=== PATIENT | male | born 1935 | race Caucasian/White ===

== ENCOUNTER 2020-09-24 11:26 | Outpatient (RCR) | payer MEDICARE, SELFPAY ==
[2020-09-24 12:21] LABS: Anion Gap 9 (5-15); BUN 31 mg/dL (7-18); BUN/Creat Ratio 21.7 RATIO (10-20); Calcium,Total 8.8 mg/dL (8.5-10.1); Chloride 103 mmol/L (98-107); Creatinine, Serum 1.43 mg/dL (0.70-1.30); EST Glomerular Filtration Rate 50 mL/min (>60); Est Glom Filt Rate - Afr Amer 61 mL/min (>60); Glucose 94 mg/dL (74-106); Potassium 4.2 mmol/L (3.5-5.1); Sodium Level 139 mmol/L (136-145)
[2020-09-24 12:39] LABS: BNP,B-Type NATRIURETIC PEPTIDE 320.5 pg/mL (0-100)
== END 2020-09-24 18:00 | disposition home or self-care (01) ==
LOC: HHLAB 11:26
DX: I13.0 Hypertensive heart and chronic kidney disease with heart failure and stage 1 through stage 4 chronic kidney disease, or unspecified chronic kidney disease (principal); I50.43 Acute on chronic combined systolic (congestive) and diastolic (congestive) heart failure; N18.9 Chronic kidney disease, unspecified
CPT/HCPCS: 80048; 83880

== ENCOUNTER 2021-06-14 15:59 | Inpatient (IN) | payer MEDICARE, SELFPAY ==
[2021-06-14 16:05] VITALS: BP 95/56; PULSE 109; RESP 22; TEMP 36.9; O2SAT 90
[2021-06-14 16:52] VITALS: BMI 26.7
[2021-06-14 17:05] LABS: Absolute Neutrophil Count 6.1 X10^3/uL (2.0-7.7); Basophil# 0.03 X10^3/uL; Basophil% 0.4 % (0-1); Eosinophil# 0.41 X10^3/uL; Eosinophils% 4.8 % (0-5); Hematocrit 42.3 % (40-54); Hemoglobin 13.7 g/dL (13.0-16.5); Lymphocyte % 9.4 % (19-41); Mean Corp Hgb Conc 32.4 g/dL (32-36); Mean Corpuscular Hgb 25.5 pg (27.0-32.0); Mean Corpuscular Volume 78.8 fL (80-94); Mean Platelet Vol. 10.3 fl (6.2-12.0); Monocyte# 1.01 X10^3/uL; Monocyte% 11.9 % (0-10); NRBC Flagged by Analyzer 0 % (0-5); Neutrophil # 6.14 X10^3/uL (2.7-7.7); Neutrophil % 72.6 % (47-70); POSITIVE MORPHOLOGY YES; Platelet Count 248 K/mm3 (150-450); RBC Distribution Width CV 21.3 % (11.6-14.6); RBC Distribution Width SD 56.3 fl (35.1-43.9); Red Blood Count 5.37 M/mm3 (4.6-6.2); White Blood Count 8.5 K/mm3 (4.4-11.0)
[2021-06-14 17:11] LABS: Differential Indicated SCAN CRITERIA MET
[2021-06-14 17:14] LABS: International Normalized Ratio 2.3; Prothrombin Time (Protime)PT. 24.2 SECONDS (11.7-14.9)
[2021-06-14 17:16] LABS: Anion Gap 6 (5-15); BUN 30 mg/dL (7-18); BUN/Creat Ratio 18.9 RATIO (10-20); Calcium,Total 8.5 mg/dL (8.5-10.1); Chloride 100 mmol/L (98-107); Creatinine, Serum 1.59 mg/dL (0.70-1.30); EST Glomerular Filtration Rate 44 mL/min (>60); Est Glom Filt Rate - Afr Amer 53 mL/min (>60); Estimated Creatinine Clearance 33.97 ml/min; Glucose 116 mg/dL (74-106); Potassium 4.3 mmol/L (3.5-5.1); Sodium Level 133 mmol/L (136-145)
[2021-06-14 17:22] VITALS: BP 95/56; PULSE 109
[2021-06-14] MEDS: Ranolazine 500 MG Tablet PO (17:22)
[2021-06-14] MEDS: Pantoprazole Sodium 40 MG Tablet PO (17:22)
[2021-06-14 17:37] LABS: Anisocytosis 1+; Differential Comment SCANNED
--- NOTE | 2021-06-14 17:42 | RAD_ITS ---
STUDY: X-RAY CHEST REASON FOR EXAM: Male, 86 years old. CHEST PAIN F/U PNEUMONIA AND CHF TECHNIQUE: XR Chest 2 Views COMPARISON: Prior comparison studies are not available for review at this time. FINDINGS: There are bilateral pleural effusions. There are bilateral infiltrates. Normal size heart. Normal mediastinum and delia. Normal visualized pulmonary arteries. There is atherosclerotic calcification of the aortic arch with tortuosity. There are diffuse degenerative changes of the visualized thoracic spine. There is degenerative osteoarthritis of the bilateral shoulders. There is no demonstrated abnormality of the visualized soft tissue structures of the upper abdomen. RAD/Chest PA and Lateral IMPRESSION: There are bilateral pleural effusions. There are bilateral infiltrates. Electronically Signed: Raheem Cortés MD at 18:16 EST , Service support ,
--- NOTE | 2021-06-14 19:06 | HP.PCM_ITS ---
HPI - General General Date of Admission: 06/14/21 HPI Narrative ESPERANZA MORENO, is a 86 Male who presents with followin05/18/2021 covid19 pneumonia, ongoing weakness. 06/06/2021 Fall, hit head, CT head negative, Chest X-ray ? pneumonia. Admit to [facility] for IV antibiotics for pneumonia/urinary tract infection. Atrial fibrillation with rapid ventricular response uncontrolled with IV Metoprolol. Cardizem helpful. Troponin elevated, BNP 10,989. Transfer to [facility]. 06/09/2021 CTA abdomen/pelvis showed bilateral pleural effusion with basilar infiltrates or atelectasis. Nonspecific proctitis and/or fecal impaction. 06/10/2021 Admit to [facility]. BUN 59, Creatinine 2.10, Potassium 5.8. ALT 1919, AST 2372. EKG showed atrial fibrillation with heart rate 97, nonspecific intraventricular block. 06/10/2021 Gastroenterology consulted for elevated liver enzymes, hepatitis panel ordered. 06/10/2021 Hold Ranexa for low blood pressure. Continue oral Lasix for congestive heart failure. Not surgical candidate for severe coronary artery disease. Medical records limited. 06/14/2021 Admit to TCU with debility, here for rehabilitation, strengthening, prior to discharge home with . [facility] Medical History (Updated 06/14/21 @ 19:[address] Tony Alvarez MD) Acute kidney injury Aortic stenosis Atrial fibrillation with rapid ventricular response Chronic combined systolic and diastolic congestive heart failure Coronary artery disease Debility Depression Elevated liver function tests Gastric cancer Hyperkalemia Hyperlipidemia Hypertension Pneumonia due to COVID-19 virus Home Medications aspirin 81 mg PO DAILY 06/14/21 [History Last Taken Unknown] atorvastatin 10 mg PO QHS 06/14/21 [History Last Taken Unknown] cholecalciferol (vitamin D3) [Vitamin D3] 50 mcg PO DAILY 06/14/21 [History Last Taken Unknown] clotrimazole-betamethasone [Lotrisone] 1 applic TOPICAL BID 06/14/21 [History Last Taken Unknown] cyanocobalamin (vitamin B-12) [Vitamin B-12] 100 mcg PO DAILY 06/14/21 [History Last Taken Unknown] digoxin 125 mcg PO DAILY 06/14/21 [History Last Taken Unknown] duloxetine 20 mg PO DAILY 06/14/21 [History Last Taken Unknown] finasteride 5 mg PO DAILY 06/14/21 [History Last Taken Unknown] furosemide 40 mg PO DAILY 06/14/21 [History Last Taken Unknown] hydroxychloroquine 200 mg PO BID 06/14/21 [History Last Taken Unknown] magnesium oxide 400 mg PO DAILY 06/14/21 [History Last Taken Unknown] metoprolol tartrate 25 mg PO BID 06/14/21 [History Last Taken Unknown] omega-3 fatty acids [Fish Oil] 300 mg PO DAILY 06/14/21 [History Last Taken Unknown] pantoprazole 40 mg PO BID 06/14/21 [History Last Taken Unknown] ranolazine [Ranexa] 500 mg PO BID 06/14/21 [History Last Taken Unknown] spironolactone 12.5 mg PO DAILY 06/14/21 [History Last Taken Unknown] tamsulosin 0.4 mg PO DAILY 06/14/21 [History Last Taken Unknown] trazodone 50 mg PO QHS 06/14/21 [History Last Taken Unknown] vitamin B complex [B Complex 50] 1 tab PO DAILY 06/14/21 [History Last Taken Unknown] warfarin 5 mg PO TUTH 06/14/21 [History Last Taken Unknown] warfarin 6 mg PO SUMOWEFRSA 06/14/21 [History Last Taken Unknown] Allergy/AdvReac Type Severity Reaction Status Date / Time buprenorphine AdvReac PT UNSURE Verified 06/14/21 16:10 OF REACTION butorphanol AdvReac PT UNSURE Verified 06/14/21 16:10 OF REACTION dezocine AdvReac PT UNSURE Verified 06/14/21 16:10 OF REACTION nalbuphine AdvReac PT UNSURE Verified 06/14/21 16:10 OF REACTION pentazocine AdvReac PT UNSURE Verified 06/14/21 16:10 OF REACTION tramadol AdvReac Vomiting Verified 06/14/21 16:10 Surgical History (Updated 06/14/21 @ 19:[address] Tony Alvarez MD) History of resection of stomach Social History (Updated 06/14/21 @ 19:[address] Tony Alvarez MD) household members: spouse Smoking Status: Never smoker alcohol intake: never substance use type: does not use ROS Constitutional Constitutional: Denies chills, fever(s) or weight gain ENT HEENT: Denies headache(s), nasal congestion or nasal discharge Cardiovascular Cardiovascular: Denies chest pain or palpitations Respiratory/Chest Respiratory/Chest: Denies cough, excessive phlegm production or shortness of breath with exertion Gastrointestinal Gastrointestinal: Denies abdominal pain, nausea or vomiting Genitourinary Genitourinary: Denies dysuria Musculoskeletal Musculoskeletal: Denies joint pain or joint swelling Integumentary Integumentary: Denies rash or wounds Neurologic Neurologic: Denies focal weakness, numbness or tingling Psychiatric Psychiatric: Denies anxiety, auditory hallucinations, depression, homicidal ideation or suicidal ideation Vital Signs Vital Signs Vital Signs: 06/14/21 16:05 06/14/21 17:22 Temperature 98.4 F Temperature Source Temporal Pulse Rate 109 H 109 H Respiratory Rate 22 H Blood Pressure 95/56 L 95/56 L Blood Pressure Mean 69 Blood Pressure Source Monitor Blood Pressure Position Semi-Fowlers Blood Pressure Location Right Arm Pulse Ox 90 Oxygen Delivery Method Room Air Weight Weight: 82.1 kg Body Mass Index (BMI) 26.7 Physical Exam Const alert and oriented x3 General Appearance: cooperative HEENT normocephalic Eyes PERRL and EOMs intact bilaterally Neck supple, no JVD and no carotid bruits Resp normal respiratory effort and normal air movement Auscultation: crackles bilateral and diminished lung sounds Cardio regular rate and regular rhythm GI normal to inspection, nondistended, normoactive bowel sounds, non-tender and non -distended Extremity normal capillary refill General Extremity: Negative for edema Skin no rashes or lesions noted General Skin Exam: no breakdown Psych affect normal Appearance: appropriate Results Lab / Micro Data Result Diagrams: 06/14/21 16:54 06/14/21 16:54 Labs: Laboratory Results - last 24 hr 06/14/21 16:54: PT 24.2 H, INR 2.3 06/14/21 16:54: WBC 8.5, RBC 5.37, Hgb 13.7, Hct 42.3, MCV 78.8 L, MCH 25.5 L, MCHC 32.4, RDW Std Deviation 56.3 H, RDW Coeff of Ruth 21.3 H, Plt Count 248, MPV 10.3, Immature Gran % (Auto) 0.900, Neut % (Auto) 72.6 H, Lymph % (Auto) 9.4 L, Bullitt % (Auto) 11.9 H, Eos % (Auto) 4.8, Baso % (Auto) 0.4, Absolute Neuts (auto) 6.1, Absolute Lymphs (auto) 0.80 L, Nucleated RBC % 0, Differential Comment SCANNED, Anisocytosis 1+ 06/14/21 16:54: Sodium 133 L, Potassium 4.3, Chloride 100, Carbon Dioxide 27.0, Anion Gap 6, BUN 30 H, Creatinine 1.59 H, Estim Creat Clear Calc 33.97, Est GFR (MDRD) Af Amer 53 L, Est GFR (MDRD) Non-Af 44 L, BUN/Creatinine Ratio 18.9, Glucose 116 H, Calcium 8.5 Assessment & Plan Assessment/Plan (1) Debility: (2) Atrial fibrillation with rapid ventricular response: (3) Pneumonia due to COVID-19 virus: (4) Acute kidney injury: (5) Hyperkalemia: (6) Elevated liver function tests: (7) Coronary artery disease: (8) Chronic combined systolic and diastolic congestive heart failure: (9) Aortic stenosis: (10) Hypertension: (11) Hyperlipidemia: (12) Depression: (13) Gastric cancer: PLAN: 86 year old male with below past medical history hospitalized for acute respiratory failure with hypoxia secondary to acute on chronic systolic and diastolic congestive heart failure, complicated by atrial fibrillation with rapid ventricular response, acute kidney injury, hyperkalemia, hepatic conge stion, admitted to TCU with debility, here for rehabilitation, strengthening, prior to discharge home with . * Debility - PT/OT. * Cognition - ST. * Pain - Tylenol 1000mg q6h prn pain (1-10). * Bowel - Senna/colace 1 tablet bid, Dulcolax 10mg daily prn. * Adult immunization - Administer prevnar 13, pneumovax 23, fluzone, covid19 vaccine as appropriate. * DVT prophylaxis - Not necessary, already on warfarin. * Hyperlipidemia - Atorvastatin 10mg qhs. * Atrial fibrillation - Metoprolol 25mg bid, Digoxin 125mcg daily, warfarin 3mg daily, follow inr. * Depression - Duloxetine 20mg daily, stable chronic [facility] use, GDR not recommended. * BPH - Finasteride 5mg daily, Tamsulosin 0.4mg daily. * Hypomagnesemia - Magnesium chloride 128mg daily. * Coronary artery disease - Metoprolol 25mg bid, Ranexa 500mg bid, warfarin. * Insomnia - Melatonin 10mg qhs. * Chronic systolic and diastolic congestive heart failure - Metoprolol 25mg bid, Entresto 24/26mg bid, Lasix 40mg bid.
[2021-06-14 20:48] VITALS: PULSE 103; RESP 22; O2SAT 88
[2021-06-14] MEDS: Atorvastatin Calcium 10 MG Tablet PO (22:14)
[2021-06-14] MEDS: MELATONIN 10 MG TABLET PO (22:14)
[2021-06-15] VITALS (7 sets, daily range): BP systolic 68–100; BP diastolic 40–62; PULSE 59–105; RESP 16–22; TEMP 36.9; O2SAT 92
[2021-06-15 05:18] LABS: BNP,B-Type NATRIURETIC PEPTIDE 1540.1 pg/mL (0-100)
[2021-06-15 05:21] LABS: ALB/GLOB Ratio 0.4 RATIO (0.9-2.4); AST(SGOT) 46 U/L (15-37); Alanine Aminotransfer ALT/SGPT 345 U/L (16-61); Albumin, Serum 1.8 g/dL (3.2-5.0); Alkaline Phosphatase 128 U/L (45-117); Anion Gap 8 (5-15); BUN 33 mg/dL (7-18); BUN/Creat Ratio 21.4 RATIO (10-20); Chloride 100 mmol/L (98-107); Creatinine, Serum 1.54 mg/dL (0.70-1.30); EST Glomerular Filtration Rate 46 mL/min (>60); Est Glom Filt Rate - Afr Amer 55 mL/min (>60); Estimated Creatinine Clearance 35.07 ml/min; Globulin 4.2 g/dL (2.2-4.2); Glucose 144 mg/dL (74-106); Potassium 4.2 mmol/L (3.5-5.1); Sodium Level 133 mmol/L (136-145)
[2021-06-15] MEDS: Nystatin Powder 15gm Bottle 1 APPLIC TOPICAL ×2 (05:46→17:15)
[2021-06-15] MEDS: DULoxetine Hcl 20 MG Capsule PO (05:46)
[2021-06-15] MEDS: Pantoprazole Sodium 40 MG Tablet PO (05:48)
[2021-06-15] MEDS: Ranolazine 500 MG Tablet PO ×2 (05:48→17:14)
[2021-06-15] MEDS: Metoprolol Tartrate 25 MG Tablet PO (05:48)
[2021-06-15] MEDS: Furosemide 40 MG Tablet PO (05:49)
[2021-06-15] MEDS: Digoxin 125 MCG Tablet PO (05:50)
[2021-06-15] MEDS: Magnesium Chloride 64 MG Delay Rel.Tablet 128 MG PO (05:51)
[2021-06-15] MEDS: SACUBITRIL/VALSARTAN 24/26 MG TABLET 1 EACH PO (05:51)
[2021-06-15] MEDS: Finasteride 5 MG Tablet PO (05:54)
[2021-06-15] MEDS: Menthol/Lanolin/Calamine/Znox 113 GM Tube 1 APPLIC TOPICAL ×2 (05:55→17:15)
[2021-06-15] MEDS: Tamsulosin HCl 0.4 MG Capsule PO (05:58)
--- NOTE | 2021-06-15 10:39 | CASEMGMT ---
Social Work SW met w/pt, BIMS completed, pt scored a 9. SW asked pt about his code status, he is not certain if he spoke w/pt about his code status or not. MOLST deferred at this time given pt's cognition. Pt confirms lived home w/ and plans to return home at discharge. Pt states does have some services at home but cannot remember what they are, gave permission to SW to call to confirm. Pt asked three times during our conversation if he can go home. SW spoke w/, confirmed w/her pt lives w/her, also lives with son, [id number], 10 yr old granddaughter and a second grandchild due at any time. She confirms she helps pt, states son helps pt out at home too. She explains pt was at [facility], went home. [facility] was ordered as was palliative care. Pt then fell, went back to [facility] and was transferred to [facility] in [place]. states that it's a miracle pt is here, states the doctor at the hospital called pt a living miracle. She states he is a blessing, they have been 62 years as of 06/26. confirms plan is for pt to return home, would like [facility] and palliative care again when pt goes home. SW did review with coverage under Medicare for TCU, explained also that length of stay in TCU is normally 30 days or less. SW reviewed w/ that there will be a plan of care meeting scheduled that she can attend, and that during this meeting the staff will start reviewing w/ and pt how he is progressing and start making plans for discharge. states understanding. SW will continue to follow, with tentative plan for pt to return home w/family assist, [facility], palliative care, and any additional DME. BILLIE Zhu
[2021-06-15] MEDS: Tuberculin,Purif.prot.deriv. 50 TU/ML Vial 0.1 ML ID (11:08)
--- NOTE | 2021-06-15 15:39 | PHA.CONS_ITS ---
Progress Note - Pharmacy Subjective: TCU Admission Objective: Allergies buprenorphine Adverse Reaction (Verified 06/14/21 16:10) PT UNSURE OF REACTION butorphanol Adverse Reaction (Verified 06/14/21 16:10) PT UNSURE OF REACTION dezocine Adverse Reaction (Verified 06/14/21 16:10) PT UNSURE OF REACTION nalbuphine Adverse Reaction (Verified 06/14/21 16:10) PT UNSURE OF REACTION pentazocine Adverse Reaction (Verified 06/14/21 16:10) PT UNSURE OF REACTION tramadol Adverse Reaction (Verified 06/14/21 16:10) Vomiting Current Medications Generic Name Dose Route Start Last Admin Trade Name Freq PRN Reason Stop Dose Admin Atorvastatin Calcium 10 mg 06/14/21 22:00 06/14/21 22:14 Atorvastatin Calcium 10 Mg Tablet PO 10 mg QHS SAGAR Administration Calamine/Phenol 1 applic 06/15/21 06:00 06/15/21 05:55 Menthol/Lanolin/Calamine/Znox 113 Gm Tube TOPICAL 1 applic BID SAGAR Administration Protocol Digoxin 125 mcg 06/15/21 06:00 06/15/21 05:50 Digoxin 125 Mcg Tablet PO 125 mcg DAILY SAGAR Administration Duloxetine HCl 20 mg 06/15/21 06:00 06/15/21 05:46 Duloxetine Hcl 20 Mg Capsule PO 20 mg DAILY SAGAR Administration Finasteride 5 mg 06/15/21 06:00 06/15/21 05:54 Finasteride 5 Mg Tablet PO 5 mg DAILY SAGAR Administration Furosemide 40 mg 06/15/21 06:00 06/15/21 14:44 Furosemide 40 Mg Tablet PO Not Given BIDLX SAGAR Magnesium Chloride 128 mg 06/15/21 06:00 06/15/21 05:51 Magnesium Chloride 64 Mg Delay Rel.Tablet PO 128 mg DAILY SAGAR Administration Metoprolol Tartrate 25 mg 06/14/21 18:00 06/15/21 05:48 Metoprolol Tartrate 25 Mg Tablet PO 25 mg BID SAGAR Administration Multi-Ingredient Cream 1 applic 06/14/21 21:15 Mineral Oil/Petrolatum,White Jar TOPICAL BID PRN PRN DRY SKIN Protocol Nystatin 1 applic 06/15/21 06:00 06/15/21 05:46 Nystatin Powder 15gm Bottle TOPICAL 1 applic BID SAGAR Administration Protocol Pantoprazole Sodium 40 mg 06/15/21 06:00 06/15/21 05:48 Pantoprazole Sodium 40 Mg Tablet PO 40 mg DAILY SAGAR Administration Ranolazine 500 mg 06/14/21 18:00 06/15/21 05:48 Ranolazine 500 Mg Tablet PO 500 mg BID [facility] Administration Sacubitril/Valsartan 1 each 06/15/21 06:00 06/15/21 05:51 Sacubitril/Valsartan 24/26 Mg Tablet PO 1 each BID [facility] Administration Tamsulosin HCl 0.4 mg 06/15/21 06:00 06/15/21 05:58 Tamsulosin Hcl 0.4 Mg Capsule PO 0.4 mg DAILY SAGAR Administration Trazodone HCl 50 mg 06/15/21 22:00 Trazodone 50 Mg Tablet PO QHS [facility] Tuberculin PPD 0.1 ml 06/22/21 10:00 Tuberculin,Purif.Prot.Deriv. 50 Tu/Ml Vial ID 06/22/21 10:01 X1 ONE Warfarin Sodium 3 mg 06/14/21 17:30 06/14/21 18:26 Warfarin 3 Mg Tablet PO 3 mg DINNER SAGAR Administration Problem List (Last Updated 06/14/21 @ 19:[address] Tony Alvarez MD) Gastric cancer (Acute) Depression (Acute) Hyperlipidemia (Acute) Hypertension (Chronic) Aortic stenosis (Acute) Chronic combined systolic and diastolic congestive heart failure (Chronic) Coronary artery disease (Acute) Elevated liver function tests (Acute) Hyperkalemia (Acute) Acute kidney injury (Acute) Pneumonia due to COVID-19 virus (Acute) Atrial fibrillation with rapid ventricular response (Acute) Debility (Acute) Vital Signs Temp Pulse Resp BP Pulse Ox 98.5 F 85 16 78/40 L 92 06/15/21 14:51 06/15/21 14:51 06/15/21 14:51 06/15/21 14:51 06/15/21 14:51 Oxygen Flow Rate (L/min) 3 Oxygen Delivery Method Nasal Cannula Weight: 82.1 kg Body Mass Index (BMI) 26.7 Sodium 133 mmol/L (136-145) L 06/15/21 04:36 Potassium 4.2 mmol/L (3.5-5.1) 06/15/21 04:36 Chloride 100 mmol/L (98-107) 06/15/21 04:36 Carbon Dioxide 25.0 mmol/L (21.0-32.0) 06/15/21 04:36 Anion Gap 8 (5-15) 06/15/21 04:36 BUN 33 mg/dL (7-18) H 06/15/21 04:36 Creatinine 1.54 mg/dL (0.70-1.30) H 06/15/21 04:36 Est GFR (MDRD) Af Amer 55 mL/min (>60) L 06/15/21 04:36 Est GFR (MDRD) Non-Af 46 mL/min (>60) L 06/15/21 04:36 BUN/Creatinine Ratio 21.4 RATIO (10-20) H 06/15/21 04:36 Glucose 144 mg/dL (74-106) H 06/15/21 04:36 Assessment/Plan: *1. CAD/CHF/atrial fibrillation: metoprolol tartrate 25mg PO BID, digoxin 125mcg PO daily, warfarin 3mg PO DINNER, ranolazine 500mg PO BID, Entresto 24/26mg 1T PO BID, and furosemide 40mg PO BIDLX. Please consider ordering a digoxin level if clinically appropriate. Patient does not have one in the chart. Thanks. Please continue to monitor BP (last 78/40), HR (last 85), nausea/vomiting, headache, INR (last 2.3), S/S of bleeding, potassium (last 4.2mmol/L), sodium (last 133mmol/L), and renal function. *2. Hyperlipidemia: atorvastatin 10mg PO QHS. Please consider ordering a lipid panel if clinically appropriate. Patient does not have one in the chart. Thanks. Please continue to monitor for muscle pain. 3. BPH: finasteride 5mg PO daily and tamsulosin 0.4mg PO daily. Please continue to monitor for S/S of BPH and BP. *4. Hypomagnesemia: magnesium chloride 128mg PO daily. Please consider ordering a magnesium level if clinically appropriate. Thanks. Psychotropic Medications: 1. Depression: duloxetine 20mg PO daily. Please see physician note regarding GDR. Thanks. *Unnecessary Medications: trazodone 50mg PO QHS and pantoprazole 40mg PO daily. I did not see a documented indication for these medications. Please consider adding indications. Thanks. Bowel Regimen: None Date of Note:: 06/15/21
--- NOTE | 2021-06-15 15:50 | CHAPLAIN ---
Type of Pastoral Visit _x__ Initial Visit ___ Follow-up Visit ___ On-call Visit ___ General Patient Visit ___ Spiritual Assessment ___ Family Conference ___ Bereavement ___ Rapid Response ___ Code Blue ___ Other (describe below) Pastoral Care Referral From _x__ Patient ___ Family ___ Nurse ___ Physician ___ Rubbing Bed Operator ___ Edging Machine Operator ___ Other (describe below) Sacrament/Intervention _x__ Active listening ___ Anointing ___ Mandaen ___ Bereavement ___ Communion ___ Roslyn exploration ___ ___ Life review ___ Prayer ___ Reconciliation ___ Sacrament of Sick _x__ Supportive presence ___ Wedding ___ Other (describe below) Pastoral Comments sat at bedside with patient after he finished some therapy; pt was unable to keep his eyes opened for very long; pt stated that he just wanted to go home and that would be better for him; offer of presence and support; pt agreed to receive a prayer.
[2021-06-15] MEDS: Bisacodyl 10 MG Suppository RC (17:09)
--- NOTE | 2021-06-15 18:13 | NURSING ---
pt c/o constipation, new order for dulcolax, given med soft results. pt sat up and at almost 50% of his supper with assist in dining area with other residents. pt having difficulty handling silverware, will add order for built up utensils. pt assisted back to bed and resting HOB elevated. alarm in place. bed in low position. call light in reach.
--- NOTE | 2021-06-15 18:51 | CASEMGMT ---
Social Work requesting Palliative referral. Order entered. Referral made to [facility] via email. CHANTALE CarvajalW
[2021-06-15] MEDS: Atorvastatin Calcium 10 MG Tablet PO (21:31)
[2021-06-15] MEDS: traZODone 50 MG Tablet PO (21:31)
[2021-06-16 05:04] VITALS: BP 89/55; PULSE 97
[2021-06-16] MEDS: Nystatin Powder 15gm Bottle 1 APPLIC TOPICAL ×2 (05:05→17:20)
[2021-06-16] MEDS: Finasteride 5 MG Tablet PO (05:05)
[2021-06-16] MEDS: Ranolazine 500 MG Tablet PO ×2 (05:05→17:19)
[2021-06-16] MEDS: Pantoprazole Sodium 40 MG Tablet PO (05:05)
[2021-06-16] MEDS: Magnesium Chloride 64 MG Delay Rel.Tablet 128 MG PO (05:06)
[2021-06-16 05:11] VITALS: BP 89/55; PULSE 97
[2021-06-16] MEDS: Tamsulosin HCl 0.4 MG Capsule PO (05:11)
[2021-06-16] MEDS: Menthol/Lanolin/Calamine/Znox 113 GM Tube 1 APPLIC TOPICAL ×2 (05:12→17:20)
[2021-06-16] MEDS: DULoxetine Hcl 20 MG Capsule PO (05:12)
[2021-06-16 06:17] LABS: International Normalized Ratio 2.7; Prothrombin Time (Protime)PT. 27.8 SECONDS (11.7-14.9)
--- NOTE | 2021-06-16 12:41 | NURSING ---
Updated this shift.
[2021-06-16 14:28] VITALS: BP 75/46; PULSE 91; RESP 22; TEMP 36.1; O2SAT 95
--- NOTE | 2021-06-16 15:00 | NURSING ---
Dr. Antonio tillman D/t Pt BP 75/46 Pulse 91 Temp 97.0. New order to D/C Fluid restriction and start Midodrine 2.5mg TID 1st dose to start now. Will continue to monitor pt. updated at this time.
[2021-06-16] MEDS: Midodrine HCl 5 MG Tablet 2.5 MG PO ×2 (15:56→18:59)
[2021-06-16 15:59] VITALS: BP 90/51; PULSE 96; TEMP 36.6
[2021-06-16 17:17] VITALS: BP 87/58; PULSE 92
[2021-06-16] MEDS: traZODone 50 MG Tablet PO (21:55)
[2021-06-16] MEDS: Atorvastatin Calcium 10 MG Tablet PO (21:55)
[2021-06-17] VITALS (10 sets, daily range): BP systolic 75–101; BP diastolic 36–59; PULSE 73–96; RESP 16–18; TEMP 35.2–36.3; O2SAT 92–96
[2021-06-17] MEDS: Menthol/Lanolin/Calamine/Znox 113 GM Tube 1 APPLIC TOPICAL ×2 (05:30→17:52)
[2021-06-17] MEDS: Tamsulosin HCl 0.4 MG Capsule PO (05:30)
[2021-06-17] MEDS: DULoxetine Hcl 20 MG Capsule PO (05:30)
[2021-06-17] MEDS: Furosemide 40 MG Tablet PO (05:31)
[2021-06-17] MEDS: Magnesium Chloride 64 MG Delay Rel.Tablet 128 MG PO (05:31)
[2021-06-17] MEDS: Finasteride 5 MG Tablet PO (05:32)
[2021-06-17] MEDS: Ranolazine 500 MG Tablet PO ×2 (05:32→17:51)
[2021-06-17] MEDS: Pantoprazole Sodium 40 MG Tablet PO (05:32)
[2021-06-17] MEDS: Nystatin Powder 15gm Bottle 1 APPLIC TOPICAL ×2 (05:42→17:52)
[2021-06-17] MEDS: Midodrine HCl 5 MG Tablet 2.5 MG PO (07:50)
[2021-06-17 11:46] LABS: Absolute Lymphocyte Count 0.63 X10^3/uL (0.83-4.51); Absolute Neutrophil Count 5.6 X10^3/uL (2.0-7.7); Basophil# 0.05 X10^3/uL; Basophil% 0.6 % (0-1); Eosinophil# 0.48 X10^3/uL; Hematocrit 41.8 % (40-54); Hemoglobin 13.5 g/dL (13.0-16.5); Lymphocyte # 0.63 X10^3/ul (0.83-4.51); Lymphocyte % 7.8 % (19-41); Mean Corp Hgb Conc 32.3 g/dL (32-36); Mean Corpuscular Hgb 25.6 pg (27.0-32.0); Mean Corpuscular Volume 79.2 fL (80-94); Mean Platelet Vol. 9.9 fl (6.2-12.0); Monocyte# 1.21 X10^3/uL; NRBC Flagged by Analyzer 0 % (0-5); Neutrophil # 5.56 X10^3/uL (2.7-7.7); POSITIVE MORPHOLOGY YES; Platelet Count 324 K/mm3 (150-450); RBC Distribution Width CV 21.6 % (11.6-14.6); RBC Distribution Width SD 56.8 fl (35.1-43.9); Red Blood Count 5.28 M/mm3 (4.6-6.2); White Blood Count 8.1 K/mm3 (4.4-11.0)
[2021-06-17 11:47] LABS: Differential Indicated SCAN CRITERIA MET
[2021-06-17 11:55] LABS: Anion Gap 7 (5-15); BUN 45 mg/dL (7-18); BUN/Creat Ratio 22.6 RATIO (10-20); Calcium,Total 8.1 mg/dL (8.5-10.1); Chloride 101 mmol/L (98-107); Creatinine, Serum 1.99 mg/dL (0.70-1.30); EST Glomerular Filtration Rate 34 mL/min (>60); Est Glom Filt Rate - Afr Amer 41 mL/min (>60); Estimated Creatinine Clearance 27.14 ml/min; Glucose 158 mg/dL (74-106); Sodium Level 133 mmol/L (136-145)
[2021-06-17 12:10] LABS: Anisocytosis RARE
[2021-06-17 12:15] LABS: Lactic Acid 2.2 mmol/L (0.4-1.9)
--- NOTE | 2021-06-17 12:18 | NURSING ---
Lab called this nurse and notified of critically high lactic acid level of 2.2. This nurse paged Dr. Alvarez and updated on lab, he stated to just monitor pt at this time and wait for urine results.
[2021-06-17] MEDS: Midodrine HCl 5 MG Tablet PO ×2 (12:27→17:51)
[2021-06-17 12:31] LABS: Bacteria 0 SEEN /hpf (None Seen); Mucous, Urine 0 SEEN /hpf (<or=2+)
[2021-06-17 12:32] LABS: Color, Urine Yellow (Yellow); Glucose, Dipstick Normal (Normal); Ketone-Dipstick Negative (Negative); Leukocyte Esterase-Dipstick 500 /ul (Negative); Nitrite-Dipstick Negative (Negative); Occult Blood-Urine 10 /ul (Negative); Protein-Dipstick 30 mg/dl (Negative); Specific Gravity, Urine 1.015 (1.002-1.030); Urine Clarity Clear (Clear); Urine Urobilinogen 8 mg/dl (Normal)
[2021-06-17 12:33] LABS: Urine Bilirubin Dipstick 1 mg/dL (Negative)
[2021-06-17 12:41] LABS: Red Blood Cells-Urine 0-5 SEEN /hpf (0-5); Squamous Epithelial Cells - UA 0-5 SEEN /hpf (0-5); White Blood Cells 25-50 SEEN /hpf (0-5)
--- NOTE | 2021-06-17 12:54 | NURSING ---
Pt BP 75/36 Pulse 91 Temp 95.3 Oral 92% 4L NC. Dr. Alvarez updated new order for CBC BMP Lactic Acid and Urinalysis.
--- NOTE | 2021-06-17 12:56 | NURSING ---
Pt Straight Cathed for 225ml of Debbie urine with normal odor. Pt tolerated well. Sent to Lab for Urinalysis.
--- NOTE | 2021-06-17 12:56 | NURSING ---
Updated Dr. Alvarez on Urinalysis. New order for Cipro 250mg to start now and BID. Order read back.
[2021-06-17] MEDS: Ciprofloxacin 250 MG Tablet PO (14:28)
--- NOTE | 2021-06-17 14:30 | NURSING ---
Addendum entered by Tona Giron 06/17/21 16:25: Pt Blood Pressure rechecked BP 85/[address] Alvarez updated no new orders at this time continue to monitor pt's BP. Original Note: Pt Blood Pressure 67/[address] Alvarez updated new order for 500ml bolus given and recheck BP.
[2021-06-17 15:37] LABS: Reflex Lactate? Y
[2021-06-17 16:48] LABS: Lactic Acid 1.5 mmol/L (0.4-1.9)
[2021-06-17] MEDS: Atorvastatin Calcium 10 MG Tablet PO (21:57)
[2021-06-17] MEDS: traZODone 50 MG Tablet PO (21:57)
[2021-06-18] VITALS (7 sets, daily range): BP systolic 80–100; BP diastolic 46–68; PULSE 76–94; RESP 16–24; TEMP 36.3; O2SAT 94–96
[2021-06-18] MEDS: Menthol/Lanolin/Calamine/Znox 113 GM Tube 1 APPLIC TOPICAL ×2 (06:05→17:54)
[2021-06-18] MEDS: Pantoprazole Sodium 40 MG Tablet PO (06:06)
[2021-06-18] MEDS: Tamsulosin HCl 0.4 MG Capsule PO (06:06)
[2021-06-18] MEDS: Finasteride 5 MG Tablet PO (06:06)
[2021-06-18] MEDS: Magnesium Chloride 64 MG Delay Rel.Tablet 128 MG PO (06:06)
[2021-06-18] MEDS: Ciprofloxacin 250 MG Tablet PO ×2 (06:06→17:54)
[2021-06-18] MEDS: Furosemide 40 MG Tablet PO (06:06)
[2021-06-18] MEDS: DULoxetine Hcl 20 MG Capsule PO (06:09)
[2021-06-18] MEDS: Nystatin Powder 15gm Bottle 1 APPLIC TOPICAL ×2 (06:12→17:54)
[2021-06-18] MEDS: Ranolazine 500 MG Tablet PO (07:45)
[2021-06-18] MEDS: Midodrine HCl 5 MG Tablet PO ×3 (08:19→17:54)
--- NOTE | 2021-06-18 09:06 | NURSING ---
Blood Pressure 72/[address] Alvarez updated and new order for 500ml NS bolus and recheck blood pressure. Will continue to monitor pt.
[2021-06-18] MEDS: 0.9% Saline Lock 10 ML Syringe IV (09:33)
--- NOTE | 2021-06-18 10:55 | CM.ED ---
Addendum entered by Andressa Phillip 06/18/21 18:38: Tona called and reported that patient's family spoke to Hospice and patient is going home tomorrow on Hospice. Tona said that they requested hospital arrange transport. CORINNA texted Gianna and asked which ambulance company for transport and she said [facility]. CORINNA updated Tona to use [facility] CORINNA called Tona, TCU RN. Tona stated that she called for transportation and [facility] was asking why patient needed cot and she explained that he is a hospice patient. CORINNA offered to update Carlie from Hospice but Tona she she had already and Carlie is [employer] [facility] over the weekend. Corinna asked if there was any additional issues or concerns and Tona said no. Addendum entered by Andressa Phillip 06/18/21 14:29: CORINNA spoke to Kavita from Hospice and gave her the referral for patient. CORINNA spoke to RN from TCU who confirmed that there was an order in for hospice/palliative and stated she had faxed referral to Hospice referral Line. CORINNA was called by TCU RN and stated family wanted to speak to social research assistant. SW spoke to patient's and son. They want to take patient home. They asked questions regarding patient and his home needs and social research assistant encouraged them to ask questions from medical scientific liaison. They said that they had gotten call from Nicole at Hospice and she will be calling them back at 2pm. CORINNA updated RN. Plan: Home with Hospice Andressa Phillip CHANTALE IRVIN Original Note: CORINNA Note CORINNA was contacted by TCU staff that patient is declining. MD and staff spoke to patient's family about hospice yesterday per RN. Family would like to speak to Hospice Liasion after 1pm today. CORINNA requested that TCU staff fax referral to Hospice. CORINNA paged [facility] RN for Hospice.
--- NOTE | 2021-06-18 14:34 | DS.PCM_ITS ---
Providers Date of Admission: 06/14/21 Primary Care Physician: GLORIA WHELAN Consultations 06/15/21 18:52 Consult: Hospice / Palliative Care Routine Consulting Provider: [facility] Reason for Consult: Palliative - COVID, CHF, decline in ADLs EMERGENT Consult: No MD Notified: Yes Date Notified: 06/15/21 Time Notified: 18:52 Method of Notification: Provider Initiated Reason For Visit: DEBILITY DUE TO COVID Diagnosis Discharge Diagnosis (1) Debility: Status: Acute Code(s): R53.81 - Other malaise (2) Atrial fibrillation with rapid ventricular response: Status: Acute Code(s): I48.91 - Unspecified atrial fibrillation (3) Pneumonia due to COVID-19 virus: Status: Acute Code(s): U07.1 - COVID-19; J12.82 - Pneumonia due to coronavirus disease 2019 (4) Acute kidney injury: Status: Acute Code(s): N17.9 - Acute kidney failure, unspecified (5) Hyperkalemia: Status: Acute Code(s): E87.5 - Hyperkalemia (6) Elevated liver function tests: Status: Acute Code(s): R79.89 - Other specified abnormal findings of blood chemistry (7) Coronary artery disease: Status: Acute Code(s): I25.10 - Atherosclerotic heart disease of [place] coronary artery without angina pectoris (8) Chronic combined systolic and diastolic congestive heart failure: Status: Chronic Code(s): I50.42 - Chronic combined systolic (congestive) and diastolic (congestive) heart failure (9) Aortic stenosis: Status: Acute Code(s): I35.0 - Nonrheumatic aortic (valve) stenosis (10) Hypertension: Status: Chronic Code(s): I10 - Essential (primary) hypertension (11) Hyperlipidemia: Status: Acute Code(s): E78.5 - Hyperlipidemia, unspecified (12) Depression: Status: Acute Code(s): F32.A - Depression, unspecified (13) Gastric cancer: Status: Acute Code(s): C16.9 - Malignant neoplasm of stomach, unspecified Hospital Course Operations None Procedures None Summary of Care Provided Minutes Spent on Discharge: 30 Hospital Course: 86 year old male with below past medical history hospitalized for acute respiratory failure with hypoxia secondary to acute on chronic systoli c and diastolic congestive heart failure, complicated by atrial fibrillation with rapid ventricular response, acute kidney injury, hyperkalemia, hepatic congestion, admitted to TCU with debility, here for rehabilitation, strengthening, prior to discharge home with . Resident dying. Discharge home with , son 06/19/2021, [facility]. Physical Exam Const alert and oriented x3 General Appearance: cooperative HEENT normocephalic Eyes PERRL and EOMs intact bilaterally Neck supple, no JVD and no carotid bruits Resp normal respiratory effort, normal air movement and clear to auscultation bilaterally Cardio regular rate and regular rhythm GI normal to inspection, nondistended, normoactive bowel sounds, non-tender and non-distended Extremity normal capillary refill General Extremity: Negative for edema Skin no rashes or lesions noted General Skin Exam: no breakdown Psych affect normal Appearance: appropriate Medical Records Data Medical Nutrition Assessment Dietitian: Malnutrition Criteria Met Start: 06/15/21 12:39 Freq: Status: Active Protocol: Document 06/15/21 12:39 SLA (Rec: 06/15/21 12:39 [facility] [id number]) Nutrition Malnutrition Evidence of Malnutrition Exists Yes Malnutrition (severe): Acute Illness/Injury Evidenced By Suboptimal Energy Intake ( Severe),Weight Loss (Severe), Physical Changes (Moderate) Clinical Problem Acute Disease or Injury Related Malnutrition Etiology related to debility d/t covid 1 mo ago making it difficult for res to consume adequate nutrition to meet est nutritional needs Signs/Symptoms as evidenced by <50% po intake and 7.8% wt loss in past month. Res appears to have muscle and fat loss in face and upper body. Status Active Problem Recommendation Dietitian Recommendations/Changes Rec discontinue fluid restriction as medically able Will provide ensure pudding or magic cup w/ meals for increased nutrition if consumed. Weight / BMI Weight Weight: 83.971 kg Body Mass Index (BMI) 26.7 ABG / Lab / Microbiology Data Result Diagrams: 06/17/21 11:32 06/17/21 11:32 Laboratory: Laboratory Results - last 24 hr 06/17/21 16:05: Lactic Acid 1.5 Microbiology: Microbiology 06/17/21 11:23 Urine, Catheterized Urine Culture - Preliminary Culture exhibits no growth. D/C Instructions Discharge Diet: No restrictions Discharge Activity: Return to Normal Activity Weight Bearing Status: Weight bearing as tolerated Additional Instructions: Discharge home with , son 06/19/2021, [facility]. Meaningful Use Info Meaningful Use Diagnoses (Choose all that apply): None applicable Discharge Plan Admission Admit Date/Time: 06/14/21 15:59 Primary Reason for Your Visit: Debility. Attending Provider: Tony Alvarez [employer] Providers: Debi Downing ; Jan Mike ; Sarahi Acosta ; Maria Del Carmen Myrick ; Rachel Wan ; Sheila Rosario [employer] COUNSELOR Instructions Additional Instructions / Restrictions: Discharge home with , son 06/19/2021, [facility]. Discharge Orders/Prescriptions Prescriptions: Discontinued furosemide 40 mg Tablet 40 mg PO DAILY RF: 0 trazodone 50 mg Tablet 50 mg PO QHS RF: 0 atorvastatin 10 mg Tablet 10 mg PO QHS RF: 0 spironolactone 25 mg Tablet 12.5 mg PO DAILY RF: 0 Vitamin B-12 50 mcg Tablet 100 mcg PO DAILY RF: 0 warfarin 6 mg Tablet 6 mg PO SUMOWEFR RF: 0 tamsulosin 0.4 mg Capsule 0.4 mg PO DAILY RF: 0 pantoprazole 40 mg Tablet,Delayed Release (Dr/Ec) 40 mg PO BID RF: 0 clotrimazole-betamethasone [Lotrisone] 1-0.05 % Cream 1 applic TOPICAL BID RF: 0 warfarin 5 mg Tablet 5 mg PO TUTH RF: 0 vitamin B complex [B Complex 50] Tablet 1 tab PO DAILY RF: 0 aspirin 81 mg Tablet 81 mg PO DAILY RF: 0 digoxin 125 mcg (0.125 mg) Tablet 125 mcg PO DAILY RF: 0 hydroxychloroquine 200 mg Tablet 200 mg PO BID RF: 0 finasteride 5 mg Tablet 5 mg PO DAILY RF: 0 metoprolol tartrate 25 mg Tablet 25 mg PO BID RF: 0 duloxetine 20 mg Capsule,Delayed Release(Dr/Ec) 20 mg PO DAILY RF: 0 ranolazine [Ranexa] 500 mg Tablet Extended Release 12 Hr 500 mg PO BID RF: 0 cholecalciferol (vitamin D3) [Vitamin D3] 25 mcg (1,000 unit) Tablet 50 mcg PO DAILY RF: 0 Fish Oil 300 mg Capsule 300 mg PO DAILY RF: 0 magnesium oxide 400 mg magnesium Tablet 400 mg PO DAILY RF: 0 Referrals / Follow Up: GLORIA WHELAN [Other] Disposition Disposition (needs filled in before D/C Order can be placed): Hospice in Home
[2021-06-18 17:46] LABS: International Normalized Ratio 3.2; Prothrombin Time (Protime)PT. 31.6 SECONDS (11.7-14.9)
[2021-06-18] MEDS: traZODone 50 MG Tablet PO (20:32)
[2021-06-18] MEDS: Atorvastatin Calcium 10 MG Tablet PO (20:32)
[2021-06-19] MEDS: Menthol/Lanolin/Calamine/Znox 113 GM Tube 1 APPLIC TOPICAL (05:01)
[2021-06-19 05:02] VITALS: BP 97/60; PULSE 84
[2021-06-19] MEDS: Ciprofloxacin 250 MG Tablet PO (05:02)
[2021-06-19] MEDS: Furosemide 40 MG Tablet PO (05:02)
[2021-06-19] MEDS: SACUBITRIL/VALSARTAN 24/26 MG TABLET 1 EACH PO (05:02)
[2021-06-19] MEDS: Tamsulosin HCl 0.4 MG Capsule PO (05:02)
[2021-06-19] MEDS: Nystatin Powder 15gm Bottle 1 APPLIC TOPICAL (05:55)
[2021-06-19] MEDS: Finasteride 5 MG Tablet PO (05:57)
[2021-06-19] MEDS: Pantoprazole Sodium 40 MG Tablet PO (05:58)
[2021-06-19] MEDS: Midodrine HCl 5 MG Tablet PO ×2 (08:08→12:06)
[2021-06-19 08:35] VITALS: BP 84/48; PULSE 95; RESP 20; TEMP 36.6; O2SAT 92
[2021-06-19 08:42] VITALS: PULSE 95; RESP 18; O2SAT 92
[2021-06-19 09:07] LABS: International Normalized Ratio 2.4; Prothrombin Time (Protime)PT. 25.4 SECONDS (11.7-14.9)
[2021-06-19 11:59] VITALS: BP 68/41; PULSE 87; RESP 18; O2SAT 92
--- NOTE | 2021-06-27 14:32 | MDS.RN ---
Information for the mds was obtained from review of the clinical record, interview of resident, staff, and direct observation of resident's care.
== END 2021-06-19 13:46 | disposition hospice, home (50) | DRG 292 ==
PROVIDERS: Admitting Provider Family Medicine Geriatric Medicine; Visit Provider Family Medicine Geriatric Medicine
DX: I11.0 Hypertensive heart disease with heart failure (principal); C16.9 Malignant neoplasm of stomach, unspecified; I50.42 Chronic combined systolic (congestive) and diastolic (congestive) heart failure; E78.5 Hyperlipidemia, unspecified; N40.0 Benign prostatic hyperplasia without lower urinary tract symptoms; F32.A Depression, unspecified; I48.91 Unspecified atrial fibrillation; I25.10 Atherosclerotic heart disease of native coronary artery without angina pectoris; Z86.16 Personal history of COVID-19; Z79.899 Other long term (current) drug therapy; Z98.2 Presence of cerebrospinal fluid drainage device; Z79.01 Long term (current) use of anticoagulants; Z28.3 Underimmunization status
CPT/HCPCS: 36415; 71046; 80048; 80053; 81001; 83605; 83880; 85025; 85610; 87086; 92507; 92523; 92526; 92610; 97110; 97116; 97162; 97166; 97530; 97802; J7040; A4216